=== PATIENT | female | born 1940 | race Caucasian/White ===

== ENCOUNTER 2025-03-10 13:32 | Emergency (ER) | payer MEDICARE, OTHER, SELFPAY ==
[2025-03-10 13:35] VITALS: BP 153/74
[2025-03-10 14:04] LABS: Hematocrit 40.7 % (37.0-47.0); Hemoglobin 13.4 g/dL (12.0-16.0); Mean Corp Hgb Conc. 32.9 g/dL (33.0-37.0); Mean Corpuscular Volume 90.0 fL (81.0-99.0); Nucleated Red Blood Cells % 0 %; Platelet Count 293 10^3/uL (130-400); Red Cell Dist. Width 13.4 % (11.5-14.5)
[2025-03-10 14:18] LABS: ALT (SGPT) 23 U/L (0-35); AST (SGOT) 31 U/L (14-36); Albumin 5.1 g/dl (3.5-5.0); Alkaline Phosphatase 70 U/L (38-126); Blood Urea Nitrogen 20 mg/dl (7-17); Calcium 10.4 mg/dl (8.4-10.2); Carbon Dioxide 29 mmol/L (22-30); Chloride 98 mmol/L (98-107); Glucose 122 mg/dl (70-99); Potassium 4.1 mmol/L (3.5-5.1); Sodium 137 mmol/L (135-145); Total Protein 8.7 g/dl (6.3-8.2); eGFR > 60.00
[2025-03-10 14:22] VITALS: BP 137/60
--- NOTE | 2025-03-10 14:57 | ED.GENMED ---
History of Present Illness
General
Chief Complaint: Head Injury
Source: patient and family
Exam Limitations: none
Time Seen by Provider: 03/10/25 14:11
Nursing documentation reviewed up to this point in time: agreed with
History of Present Illness
History of Present Illness:
Patient is an 84-year-old female who has past medical history of vasovagal syncope hypertension presents to the ER for evaluation. Patient lives on her own. daughter reports patient was very confused yesterday when she talk to her over the phone.
Patient reports she remembers at 1 point after eating dinner having to use the bathroom to have diarrhea she remembers sitting on the toilet but does not remember any type of fall or injury. Daughter reports that she talk to her and she seemed to
be confused and was confused about the day of the week and what she did that day.
Daughter reports patient is not confused today but does have a headache. Daughter noticed bruising to the right side of her head and is concerned that she may have had a syncopal episode on the toilet after having diarrhea. She reports she has had
this in the past associated with diarrhea.
Patient was evaluate by cardiology as well as neurology for vasovagal syncope and has a loop recorder in. No arrhythmia was identified. 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
Phy Exam
General Physical Exam
General Presentation: no apparent distress
General age: appears stated age
General Skin: warm and dry
General Habitus: normal
General Mental: alert
General Hydration: appears well hydrated
Eye Exam
Eye Exam: PERRL and EOMI
Eye Exam General: PERRL: bilateral and EOM intact: bilateral
Pupil Exam: Bilateral: round and reactive
Neurological Exam
Neurological Exam: alert and oriented x3
Musculoskeletal Exam
Musculoskeletal Exam: other (right forehead with ecchymosis)
Skin Exam
Skin Exam: normal color and warm/dry
Psychiatric Exam
Psychiatric Exam: normal mood/affect
Course
Orders/Labs/Results
Orders:
Orders
03/10/25 13:41
Electrocardiogram (*1) Urgent
Reason for Study: Abdominal Pain
CT Head W/o Iv Contrast Urgent
Comment:
Reason For Exam: head strike +thinners
EKG- Treatment ONCE
03/10/25 13:54
Complete Blood Count/With Diff Urgent
Comprehensive Metabolic Panel Urgent
03/10/25 15:41
UA Reflex to Culture [Urinalysis Reflex To Culture] Urgent
Date Specimen was Collected: 03/10/25
Time Specimen was Collected: 15:36
Urine Microscopic Reflex Cult Urgent
Urine Culture Urgent
GAVIN Source: U
Specimen Description:
Date Specimen was Collected: 03/10/25
Time Specimen was Collected: 15:36
Abnormal Lab Results
03/10/25 03/10/25
13:54 15:41
MCHC 32.9 L g/dL
(33.0-37.0)
Absolute Monos (auto) 0.8 H 10^3/uL
(0.1-0.6)
Monocytes % 10.4 H %
(1.7-9.3)
BUN 20 H mg/dl
(7-17)
Glucose 122 H mg/dl
(70-99)
Calcium 10.4 H mg/dl
(8.4-10.2)
Total Protein 8.7 H g/dl
(6.3-8.2)
Albumin 5.1 H g/dl
(3.5-5.0)
Leukocyte Esterase Rfl 2+ A
(Negative)
Urine WBC (Reflex) 11-15 A /HPF
(0-5)
Urine Bacteria (Reflex) Few A
(Negative)
03/10/25 13:54
03/10/25 13:54
Vital Signs
Initial and Last Documented VS:
Initial Vital Signs
Temp Pulse Resp BP Pulse Ox
98.1 F 94 20 153/74 98
03/10/25 13:35 03/10/25 13:35 03/10/25 13:35 03/10/25 13:35 03/10/25 13:35
Last Documented Vital Signs
Temp Pulse Resp BP Pulse Ox
98.1 F 90 16 128/69 97
03/10/25 13:35 03/10/25 18:00 03/10/25 18:00 03/10/25 18:00 03/10/25 15:08
MDM/Problems Addressed
MDM/Problems Addressed:
As documented patient is a 4-year-old female brought by daughter for evaluation. Yesterday patient may have passed out. Daughter reports she talk to patient yesterday and patient seemed a little confused. Patient remembers as documented above
feel like she had to move her bowels and remember sitting on the toilet. She does have a history of vasovagal syncope in the past with diarrhea. Today patient is back to normal however daughter noticed bruising and brought patient to the ER for
evaluation. Patient presents awake alert no acute distress she has no complaints now. She denies any fever chills her vital signs are stable. She has a normal white count BUN very minimally elevated at 20. Patient has been drinking fluids here
in the ER. UA does not appear infected , dirty specimen.Cx sent will hold off on antibx ..
CT negative. Patient again as documented above has had a normal workup for this syncope in the past with cardiology and neurology she has a loop recorder. Patient is very well-appearing here in the ER stable ambulatory on her feet and a steady
gait will plan for discharge home with outpatient cardiology follow-up.
*Radiology
Radiology exam reviewed: radiology read reviewed
*Pulse Oximetry
SaO2: 97
Oxygen Mode of Delivery: Room air
Patient hypoxic: no
*EKG
Interpreted by ED Provider?: Yes
Heart Rate: 78
Rate: normal
Rhythm: sinus and PAC's
Ischemia: no ischemia
*Critical Care Note
Total Time (30-74mins, 75-104mins- exclusive of procedures): Not Applicable
Data Reviewed
Review of Other/Old Records Reveals: Other (Echo reviewed from 2023 shows normal chamber sizes grade 1 diastolic function mild pulmonary hypertension small L5 try gradient without significant valve disease)
ED Attending Note
-
Portions of this chart may have been created with voice recognition software.� Occasional wrong word or��sound alike� substitutions may have occurred due to the inherent limitations of voice recognition software.
Discharge Plan
Departure
Patient Disposition: Home (Routine Discharge)
Date of Disposition: 03/10/25
Time of Disposition: 18:26
Patient with high blood pressure during this ER visit?: Yes
Condition: Fair
Covid-19: Not Applicable
Discharge Problem:
Head injury
Instructions: Head Injury in Adults (DC), BLOOD PRESSURE
Prescriptions:
No Action
enalapril maleate 5 mg Tablet
5 mg PO DAILY
amlodipine 2.5 mg Tablet
2.5 mg PO BID
clopidogrel [Plavix] 75 mg Tablet
75 mg PO DAILY
levothyroxine [Synthroid] 75 mcg Tablet
75 mcg PO DAILY
alprazolam [Xanax] 0.25 mg Tablet
0.25 mg PO DAILY PRN (Reason: anxiety)
vitamin B complex [B Complex] Capsule
1 cap PO DAILY
[place] 3 Fish Oil 684-1,200 mg Capsule,Delayed Release(Dr/Ec)
1 cap PO DAILY
Biosil Collagen Generator
1 cap PO DAILY
magnesium glycinate
400 mg PO DAILY
vitamin D3-vitamin K2
1 cap PO DAILY
Referrals:
Kalpana Richardson DO [Family Provider, Internal Medicine]
Activity Restrictions/Additional Instructions:
Follow-up with your family doctor as well as cardiology for reevaluation. Call Thursday to make an appointment next week. Of symptoms stay hydrated. Return if any worsening of symptoms
Interventions
Interventions:
*Risk Screen - Suicide Last Done: 03/10/25 13:35
*General Assessment Last Done: 03/10/25 13:35
*Neglect/Abuse Screening Last Done: 03/10/25 13:35
*ED- Fall Risk Assessment Last Done: 03/10/25 14:22
*ED COVID-19 Vaccine History Last Done: 03/10/25 14:22
*ED Influenza Vaccine History Last Done: 03/10/25 14:22
ED- Neurological Assessment Last Done: 03/10/25 15:51
ED-Skin Assessment Last Done: 03/10/25 15:51
Discharge Date and Time
Print Language: SAO TOMEAN
[2025-03-10 15:49] VITALS: BP 145/64
[2025-03-10 16:00] VITALS: BP 131/51
[2025-03-10 16:17] LABS: Urine Character Mucous (Clear)
[2025-03-10 17:00] LABS: Urine Red Blood Cell 0-2 /HPF (0-2)
[2025-03-10 17:02] VITALS: BP 101/30
[2025-03-10 18:00] VITALS: BP 128/69
[2025-03-10] MEDS: TYLENOL 650 MG PO (18:38)
== END 2025-03-10 18:48 | disposition home or self-care (01) ==
LOC: EMR 13:32
PROVIDERS: Nurse Practitioner; Student in an Organized Health Care Education/Training Program; EMERGENCY PHYSICIAN Emergency Medicine; FAMILY PHYSICIAN Internal Medicine
DX: S09.90XA Unspecified injury of head, initial encounter (principal); S00.83XA Contusion of other part of head, initial encounter; X58.XXXA Exposure to other specified factors, initial encounter
CPT/HCPCS: 99284; 70450; 80053; 81003; 81015; 85025; 87086; 93005